=== PATIENT | female | born 1970 | race Caucasian/White ===

== ENCOUNTER 2017-09-24 12:55 | Emergency (ER) | payer OTHER ==
[~2017-09-24] VITALS: Ht 165.1 cm; Wt 145.2 kg
[~2017-09-24 12:55] MED LIST: FLEXERIL PO; IBUPROFEN 800800 MG PO; NORCO 5-325 TA1 EACH PO; REQUIP XL2 MG PO; XANAX 0.5 MG0.5 M1 PO
[2017-09-24] MEDS ORDERED: METFORMIN HCL500 MG PO (13:03)
[2017-09-24] MEDS ORDERED: BUTALB-APAP-CA1 EACH PO (14:24)
[2017-09-24 14:40] VITALS: BP 149/70
== END 2017-09-24 14:44 | disposition home or self-care (01) ==
LOC: M.ERS 12:55
DX: M54.2 Cervicalgia (principal); R51 Headache; R03.0 Elevated blood-pressure reading, without diagnosis of hypertension; E11.9 Type 2 diabetes mellitus without complications; Y04.8XXA Assault by other bodily force, initial encounter; Y93.89 Activity, other specified; Y92.89 Other specified places as the place of occurrence of the external cause; Y99.8 Other external cause status

== ENCOUNTER 2018-04-08 18:08 | Emergency (ER) | payer OTHER ==
[~2018-04-08] VITALS: Ht 165.1 cm; Wt 147.9 kg
[~2018-04-08 18:08] MED LIST changes: +BUTALB-APAP-CA1 EACH PO; +METFORMIN HCL500 MG PO
[2018-04-08] MEDS ORDERED: MIRAPEX1 MG PO (18:22)
[2018-04-08 19:08] LABS: URINE BILIRUBIN NEGATIVE (Negative); URINE BLOOD TRACE (Negative); URINE CLARITY CLEAR; URINE COLOR YELLOW; URINE GLUCOSE-RANDOM 3+ (Negative); URINE KETONES NEGATIVE (Negative); URINE LEUKOCYTES-REFLEX NEGATIVE (Negative); URINE NITRITE-REFLEX NEGATIVE (Negative); URINE PROTEIN NEGATIVE (Negative); URINE UROBILINOGEN 0.2 E.U./dl (0.2-1.0)
[2018-04-08 19:08] LABS: ABSOLUTE BASOPHILS 0.1 thou/uL (0.0-0.2); ABSOLUTE EOSINOPHILS 0.1 thou/uL (0.0-0.7); ABSOLUTE MONOCYTES 0.6 thou/uL (0.0-1.2); BASOPHILS 1.2 %; EOSINOPHILS 1.4 %; LYMPHOCYTES 29.5 %; MCH 25.5 pg (26.0-34.0); MCHC 32.4 g/dL (28.0-37.0); MCV 78.6 fL (80.0-100.0); MONOCYTES 8.4 %; MPV 8.7 fl. (7.2-11.1); NUCLEATED RBCS 0 /100WBC; PLATELET COUNT* 245 thou/uL (150-400); POLYS 59.5 %; RBC 5.08 mil/uL (4.20-5.00); WBC 6.7 thou/uL (4.0-11.0)
[2018-04-08 19:16] LABS: ANION GAP 11 mmol/L (7-16); BUN 15 mg/dL (7-18); CALCIUM 9.2 mg/dL (8.5-10.1); CHLORIDE 101 mmol/L (98-107); CO2 24 mmol/L (21-32); CREATININE 0.8 mg/dL (0.6-1.3); GLUCOSE 398 mg/dL (70-99); POTASSIUM 3.9 mmol/L (3.5-5.1); SODIUM 136 mmol/L (136-145)
[2018-04-08 19:22] LABS: ALBUMIN 3.1 g/dL (3.4-5.0); ALKALINE PHOSPHATASE 75 U/L (46-116); SGOT 20 U/L (15-37); SGPT 39 U/L (30-65); TOTAL BILIRUBIN 0.2 mg/dL (<0.1-1.0); TOTAL PROTEIN 7.1 g/dL (6.4-8.2)
[2018-04-08 22:10] VITALS: BP 187/93
--- NOTE | 2018-04-09 17:46 | EKG ---
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
== END 2018-04-08 22:10 | disposition home or self-care (01) ==
LOC: M.ERS 18:08
PROVIDERS: Personal Emergency Response Attendant
DX: E11.65 Type 2 diabetes mellitus with hyperglycemia (principal); A59.01 Trichomonal vulvovaginitis

== ENCOUNTER 2018-10-14 08:42 | Emergency (ER) | payer OTHER ==
[~2018-10-14] VITALS: Ht 165.1 cm; Wt 124.7 kg
[~2018-10-14 08:42] MED LIST changes: +MIRAPEX1 MG PO
[2018-10-14] MEDS ORDERED: NOVOLOG100 UNIT/1 SUBQ (08:50)
[2018-10-14] MEDS ORDERED: NORCO 5-325 TA1 EAC1 PO (09:10)
[2018-10-14] MEDS ORDERED: FLEXERIL PO (09:10)
[2018-10-14 09:29] VITALS: BP 198/92
== END 2018-10-14 09:45 | disposition home or self-care (01) ==
LOC: M.ERS 08:42
DX: S16.1XXA Strain of muscle, fascia and tendon at neck level, initial encounter (principal); F17.210 Nicotine dependence, cigarettes, uncomplicated; F41.9 Anxiety disorder, unspecified; E11.9 Type 2 diabetes mellitus without complications; Z79.4 Long term (current) use of insulin; V89.2XXA Person injured in unspecified motor-vehicle accident, traffic, initial encounter; Y92.89 Other specified places as the place of occurrence of the external cause; Y93.89 Activity, other specified; Y99.8 Other external cause status

== ENCOUNTER 2020-04-27 13:19 | Emergency (ER) | payer OTHER ==
[~2020-04-27] VITALS: Ht 165.1 cm; Wt 127.0 kg
[~2020-04-27 13:19] MED LIST changes: +NORCO 5-325 TA1 EAC1 PO; +NOVOLOG100 UNIT/1 SUBQ
[2020-04-27 14:18] LABS: HEMATOCRIT 41.3 % (37.0-47.0); HEMOGLOBIN 13.3 gm/dL (12.0-15.0); MCH 24.7 pg (26.0-34.0); MCHC 32.3 g/dL (28.0-37.0); MCV 76.4 fL (80.0-100.0); MPV 8.3 fl. (7.2-11.1); RBC 5.4 mil/uL (4.20-5.00); RDW-CV 15.5 % (10.5-14.5); WBC 6.4 thou/uL (4.0-11.0)
[2020-04-27 14:28] LABS: CALCIUM 8.5 mg/dL (8.5-10.1); CREATININE 0.9 mg/dL (0.6-1.3)
[2020-04-27 14:38] LABS: MAGNESIUM 1.9 mg/dL (1.8-2.4); TOTAL BILIRUBIN 0.4 mg/dL (<0.1-1.0); TOTAL PROTEIN 7.2 g/dL (6.4-8.2)
[2020-04-27 14:41] LABS: URINE BILIRUBIN NEGATIVE (Negative); URINE BLOOD NEGATIVE (Negative); URINE COLOR YELLOW; URINE GLUCOSE-RANDOM 3+ (Negative); URINE KETONES NEGATIVE (Negative); URINE LEUKOCYTES NEGATIVE (Negative); URINE NITRITE POSITIVE (Negative); URINE PROTEIN NEGATIVE (Negative); URINE SPECIFIC GRAVITY 1.015 (1.005-1.030); URINE UROBILINOGEN 0.2 E.U./dl (0.2-1.0)
[2020-04-27 14:42] LABS: URINE CLARITY CLOUDY
[2020-04-27 14:50] LABS: AMP/METHAMP Negative (Negative); BARBITURATES Negative (Negative); BENZODIAZEPINES Negative (Negative); COCAINE Negative (Negative); METHADONE Negative (Negative); OPIATES Negative (Negative); PCP Negative (Negative); THC Negative (Negative)
[2020-04-27 14:53] LABS: BACTERIA >30 Many /HPF (None Seen); CASTS None Seen /LPF (None Seen); CRYSTALS None Seen /LPF (None Seen); SQUAMOUS >10 Many /LPF (0-3); URINE RBC None Seen /HPF (0-2)
[2020-04-27] MEDS ORDERED: VISTARIL 25 MG25 M1 PO (15:04)
[2020-04-27] MEDS ORDERED: NORVASC5 M1 PO (15:04)
[2020-04-27] MEDS ORDERED: HYDROCHLOROTHIA25 M2 PO (15:04)
[2020-04-27] MEDS ORDERED: METFORMIN HCL500 M3 PO (15:04)
[2020-04-27] MEDS ORDERED: MIRAPEX ER1.5 MG PO (15:04)
[2020-04-27] MEDS ORDERED: LISINOPRIL10 MG PO (15:04)
[2020-04-27] MEDS ORDERED: ACTICIN 5% CREA60 G1 TOP (15:05)
[2020-04-27 15:20] VITALS: BP 197/88
--- NOTE | 2020-04-27 17:32 | EKG ---
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1970 Requested By: Tomeka Mcdermott Order Number: [id number] MD: Tanner Rosas Measurements Intervals [place] Rate: 92 P: 67 [place]: 132 QRS: 32 QRSD: 96 T: 71 QT: 363 QTc: 450 Interpretive Statements Sinus rhythm Probable left atrial enlargement Left ventricular hypertrophy ST elev, probable normal early repol pattern Compared to ECG 04/08/2018 19:52:20 Left ventricular hypertrophy now present ST (T wave) deviation now present Sinus tachycardia no longer present Electronically Signed On 04-27-2020 17:31:49 PHARM TECH by Tanner Rosas [email or web address] <ELECTRONICALLY SIGNED> By: Tanner Rosas MD, FACC 04/27/20 1731 140 140 Tanner Rosas MD, FACC /EPI
== END 2020-04-27 15:20 | disposition home or self-care (01) ==
LOC: M.ERS 13:19
PROVIDERS: Physician Assistant
DX: F41.9 Anxiety disorder, unspecified (principal); Z76.0 Encounter for issue of repeat prescription; E11.9 Type 2 diabetes mellitus without complications; I10 Essential (primary) hypertension; R21 Rash and other nonspecific skin eruption; E66.01 Morbid (severe) obesity due to excess calories; F17.210 Nicotine dependence, cigarettes, uncomplicated; Z68.42 Body mass index [BMI] 45.0-49.9, adult; Z98.51 Tubal ligation status; Z79.899 Other long term (current) drug therapy